=== PATIENT | female | born 1995 | race Caucasian/White ===

== ENCOUNTER 2018-09-09 12:15 | Inpatient (IN) | payer BC ==
[~2018-09-09 12:15] MED LIST: methylPREDNISolone 1 GM in Sodium Chloride 0.9% 250 ML IVPB ONE
[2018-09-09] MEDS ORDERED: Sodium Chloride 0.9% 1,000 ML IV ONE (13:03)
[2018-09-09 13:07] LABS: BASO # 0.1 K/uL (0.0-0.2); EOS % 0.3 % (0.0-4.0); LYMPH # 1.6 K/uL (1.0-4.3); LYMPH % 21.6 % (20.0-40.0); MEAN CORPUSCULAR HEMOGLOBIN 14.5 pg (27.0-31.0); MEAN CORPUSCULAR HGB CONC 26.9 g/dL (33.0-37.0); MEAN PLATELET VOLUME 9.1 fL (7.2-11.7); MONO # 0.5 K/uL (0.0-0.8); MONO % 6.7 % (0.0-10.0); NEUT # 5.3 K/uL (1.8-7.0); NEUT % 70.4 % (50.0-75.0); NRBC % 0.4 % (0.0-2.0); RBC 3.32 Mil/uL (3.80-5.20); RED CELL DISTRIBUTION WIDTH 20.5 % (11.5-14.5); WHITE BLOOD COUNT 7.5 K/uL (4.8-10.8)
[2018-09-09 13:16] LABS: INR 1.2; PROTHROMBIN TIME 12.8 SECONDS (9.7-12.2)
[2018-09-09 13:17] LABS: ALB/GLOB RATIO 1.2 (1.0-2.1); ALBUMIN 4.3 g/dL (3.5-5.0); ALT/SGPT 15 U/L (9-52); AST/SGOT 12 U/L (14-36); BLOOD UREA NITROGEN 3 mg/dL (7-17); GFR NON-AFRICAN AMERICAN > 60; HEMOGLOBIN 4.8 g/dL (11.0-16.0)
[2018-09-09] MEDS ORDERED: Sodium Chloride 0.9% 1,000 ML ONE (13:17)
--- NOTE | 2018-09-09 13:25 | RAD ---
Date of service: 09/09/2018 HISTORY: SOB COMPARISON: No prior. TECHNIQUE: Chest PA and lateral FINDINGS: LUNGS: No active pulmonary disease. PLEURA: No significant pleural effusion identified. No pneumothorax apparent. CARDIOVASCULAR: No aortic atherosclerotic calcification present OSSEOUS STRUCTURES: No significant abnormalities. VISUALIZED UPPER ABDOMEN: Normal. OTHER FINDINGS: None. IMPRESSION: No active disease.
--- NOTE | 2018-09-09 13:35 | C.PDOC ---
History Of Present Illness 23 y/o female presents to the ER complaining of dizziness.Patient states that she was referred to the ER by her her PMD for anemia. Her PMD referred her for bloodwork, admission, and blood transfusions. Patient reports that she has receive blood transfusions for anemia in the past.Denies having fever, chills, CP, SOB, nausea, and vomiting. Time Seen by Provider: 09/09/18 12:34 Chief Complaint (Nursing): Abnormal Labs History Per: Patient History/Exam Limitations: no limitations Onset/Duration Of Symptoms: Days Current Symptoms Are (Timing): Still Present Severity: Moderate Pain Scale Rating Of: 3 Recent travel outside of the [place]: No Additional History Per: Patient, Family Past Medical History Reviewed: Historical Data, Nursing Documentation, Vital Signs Vital Signs: Last Vital Signs Temp 99.4 F 09/09/18 12:23 Pulse 129 H 09/09/18 12:23 Resp 15 09/09/18 12:23 BP 116/72 09/09/18 12:23 Pulse Ox 100 09/09/18 12:23 - Medical History PMH: No Chronic Diseases Surgical History: Appendectomy Family History: States: No Known Family Hx - Social History Hx Alcohol Use: No Hx Substance Use: No - Immunization History Hx Tetanus Toxoid Vaccination: No Hx Influenza Vaccination: No Hx Pneumococcal Vaccination: No Review Of Systems Except As Marked, All Systems Reviewed And Found Negative. Constitutional: Negative for: Fever, Chills Cardiovascular: Negative for: Chest Pain Respiratory: Negative for: Shortness of Breath Gastrointestinal: Negative for: Nausea, Vomiting Neurological: Positive for: Dizziness Physical Exam - Physical Exam Appears: Non-toxic, No Acute Distress Skin: Warm, Dry, Pale Head: Atraumatic, Normacephalic Eye(s): bilateral: Normal Inspection Nose: Normal Oral Mucosa: Moist Lips: Normal Appearing Neck: Supple Chest: Symmetrical Cardiovascular: Rhythm Irregular (tachycardiac) Respiratory: Normal Breath Sounds, No Rales, No Rhonchi, No Wheezing Gastrointestinal/Abdominal: Normal Exam, Soft, No Tenderness, No Guarding, No Rebound Extremity: Normal ROM, Other (no edema) Neurological/Psych: Oriented x3, Normal Speech Gait: Steady ED Course And Treatment - Laboratory Results Result Diagrams: 09/09/18 13:01 09/09/18 13:01 Lab Interpretation: Abnormal Urine POC: Negative O2 Sat by Pulse Oximetry: 100 (RA) Pulse Ox Interpretation: Normal - Radiology CXR: Interpreted by Me - CT Scan/US No standard instances Other Rad Studies (CT/US): Read By Radiologist, Radiology Report Reviewed CT/US Interpretation: FINDINGS: Mild streak artifact limits evaluation of the skull base. HEMORRHAGE: No intracranial hemorrhage. BRAIN: No mass effect or edema. The silvestre-white matter differentiation appears intact. Please note that MRI with diffusion imaging is more sensitive in the detection of acute ischemic event. VENTRICLES: No hydrocephalus. CALVARIUM: Unremarkable. PARANASAL SINUSES: Unremarkable as visualized. No significant inflammatory changes. MASTOID AIR CELLS: Unremarkable as visualized. No inflammatory changes. OTHER FINDINGS: None. IMPRESSION: No acute intracranial pathology identified. Progress Note: Treated with IVF NSS. Consent for blood obtained Reassessment Condition: Unchanged - Physician Consult Information Physician Contacted: Chana Newell Outcome Of Conversation: admit Medical Decision Making Medical Decision Making: Plan: --Labs --UA --CT-Head --US-Abd. --US-Pelv. Updates: Case discussed with hospitalist, . Patient will be admitted under the service of . Disposition Discussed With Dr.: Chana Newell Doctor Will See Patient In The: Hospital - Disposition Disposition: HOME/ ROUTINE Disposition Time: 17:30 Condition: STABLE - POA Present On Arrival: None - Clinical Impression Clinical Impression: Anemia, Thrombocytopenia - PA / TOLL OPERATOR / Resident Statement MD/DO has reviewed & agrees with the documentation as recorded. - Scribe Statement The provider has reviewed the documentation as recorded by the Anabell Gaytan Provider Attestation All medical record entries made by the Anabell were at my direction and personally dictated by me. I have reviewed the chart and agree that the record accurately reflects my personal performance of the history, physical exam, medical decision making, and the department course for this patient. I have also personally directed, reviewed, and agree with the discharge instructions and disposition.
--- NOTE | 2018-09-09 13:35 | C.PDOC ---
Time Seen by Provider: 09/09/18 12:34 Chief Complaint (Nursing): Abnormal Labs Past Medical History Vital Signs: Last Vital Signs Temp 99.4 F 09/09/18 12:23 Pulse 129 H 09/09/18 12:23 Resp 15 09/09/18 12:23 BP 116/72 09/09/18 12:23 Pulse Ox 100 09/09/18 12:23 Surgical History: Appendectomy - Social History Hx Alcohol Use: No Hx Substance Use: No - Immunization History Hx Tetanus Toxoid Vaccination: No Hx Influenza Vaccination: No Hx Pneumococcal Vaccination: No ED Course And Treatment - Laboratory Results Result Diagrams: 09/09/18 13:01 09/09/18 13:01 O2 Sat by Pulse Oximetry: 100 Disposition - Disposition
[2018-09-09 14:23] LABS: FOLATE 9.6 ng/mL
--- NOTE | 2018-09-09 14:28 | US ---
Date of service: 09/09/2018 HISTORY: Anemia COMPARISON: None available. TECHNIQUE: Transabdominal pelvic ultrasound was performed. FINDINGS: UTERUS: Measures 6.5 x 3.7 x 4.8 cm. Anteverted, normal in size and appearance. No fibroid or other mass lesion seen. ENDOMETRIUM: Measures 9.0 mm in diameter. The central endometrial echo complex is normal in appearance. CERVIX: No cervical abnormality identified. RIGHT OVARY: Measures 3.7 x 1.8 x 3.1 cm. No solid mass. Normal flow. LEFT OVARY: Measures 0.0 x 3.1 x 4.3 cm. No solid mass. Normal flow. FREE FLUID: There is small amount of free fluid in the cul de sac, likely physiologic. OTHER FINDINGS: None. IMPRESSION: Unremarkable pelvic ultrasound.
--- NOTE | 2018-09-09 14:30 | US ---
Date of service: 09/09/2018 HISTORY: Anemia COMPARISON: None. TECHNIQUE: Grayscale imaging was performed. FINDINGS: LIVER: Measures 14.1 cm. There is diffuse increased echogenicity of the liver parenchyma. No mass. No intrahepatic bile duct dilatation. GALLBLADDER: There are no gallstones, wall thickening or pericholecystic fluid. The sonographic Hensley's sign is negative. COMMON BILE DUCT: Measures 2.6 mm. No stones. No dilatation. PANCREAS: Unremarkable as visualized. No mass. No ductal dilatation. RIGHT KIDNEY: Measures 11.8cm. Normal echogenicity. No calculus, mass, or hydronephrosis. LEFT KIDNEY: Measures 11.6cm. Normal echogenicity. No calculus, mass, or hydronephrosis. SPLEEN: The spleen is enlarged and measures 13.2 cm. Normal echotexture. AORTA: No aneurysmal dilatation. IVC: Unremarkable. OTHER FINDINGS: None. IMPRESSION: Fatty liver. Mild splenomegaly. No cholelithiasis or biliary dilatation.
[2018-09-09 15:08] LABS: IRON 18 ug/dL (37-170)
--- NOTE | 2018-09-09 15:11 | CT ---
Date of service: 09/09/2018 PROCEDURE: CT HEAD WITHOUT CONTRAST. HISTORY: R/O Bleed COMPARISON: None available. TECHNIQUE: Axial computed tomography images were obtained through the head/brain without intravenous contrast. Radiation dose: Total exam DLP = 1076.11 mGy-cm. This CT exam was performed using one or more of the following dose reduction techniques: Automated exposure control, adjustment of the mA and/or kV according to patient size, and/or use of iterative reconstruction technique. FINDINGS: Mild streak artifact limits evaluation of the skull base. HEMORRHAGE: No intracranial hemorrhage. BRAIN: No mass effect or edema. The silvestre-white matter differentiation appears intact. Please note that MRI with diffusion imaging is more sensitive in the detection of acute ischemic event. VENTRICLES: No hydrocephalus. CALVARIUM: Unremarkable. PARANASAL SINUSES: Unremarkable as visualized. No significant inflammatory changes. MASTOID AIR CELLS: Unremarkable as visualized. No inflammatory changes. OTHER FINDINGS: None. IMPRESSION: No acute intracranial pathology identified.
[2018-09-09 15:17] LABS: % IRON SATURATION 4 (20-55); TOTAL IRON BINDING CAPACITY 431 ug/dL (250-450)
[2018-09-09] MEDS ORDERED: MethylPREDNISolone 1 gm Vial IV ONE ×2 (15:26→15:27)
[2018-09-09 15:34] LABS: HEPATITIS B SURFACE AG Negative (NEGATIVE)
[2018-09-09 15:40] LABS: HEPATITIS A IGM NEGATIVE (NEGATIVE); HEPATITIS B CORE AB NEGATIVE (NEGATIVE)
[2018-09-09 15:40] LABS: HCG,QUALITATIVE URINE NEGATIVE (NEGATIVE)
[2018-09-09 15:42] LABS: PLATELET COUNT MANUAL 10 K/uL (130-400)
[2018-09-09 15:43] LABS: SQUAMOUS EPITHIAL 1 /hpf (0-5); URINE BACTERIA FEW (<OCC); URINE BILIRUBIN NEGATIVE (NEGATIVE); URINE BLOOD NEGATIVE (NEGATIVE); URINE CLARITY Clear (Clear); URINE COLOR Straw (YELLOW); URINE GLUCOSE (UA) NORMAL (Normal); URINE LEUKOCYTE ESTERASE NEG Leu/uL (Negative); URINE PROTEIN NEGATIVE (NEGATIVE); URINE UROBILINOGEN NORMAL mg/dL (0.2-1.0)
--- NOTE | 2018-09-09 15:58 | CP.PCM.HP ---
<Milagro Tobar - Last Filed: 09/09/18 18:13> History of Present Illness - History of Present Illness History of Present Illness: 23 y/o female with PMHx of blood dyscrasias since 2014 presents to the emergency room upon referral from Dr. Garcia, heme-onc. She got bloodwork completed yesterday, 09/08, and was seen by him today, 09/09. He told her to go to the emergency room due to critical lab values (Hb 4.8 and plt 11). Of note, patient has been feeling weak and dizzy for the past 3 weeks. Her LMP was Oct 6. The cycle was longer but not any heavier. Patient has been a regular patient of [facility] in [place] since she first had such an episode of weakness/diziness in 2014 and also in [place] in March 2018. During her first episode, patient was on steroids for a year, and in March she was on it for a week. Patient currently not treated with steroids, but been recently taking iron supplements from her OBGYN, Dr. Castro. She recently moved from [facility] since this past spring and is a p atient of Dr. Castro and Dr. Garcia, the latter who she just saw for the first time. Patient denies TALLEY, abdominal pain, chest pain, shortness of breath, rash, easy bruising, and weight changes. Recent travel was just in [place] in Jul, however, denies being in a Malaria exposed environment. ROS: as per HPI PMHx: blood dyscrasias since 2014, no other known PMHx PSHx: appendectomy 6 y/o, BM bx 2014 and blood smear 2014 which showed anisocytosis, microcytes, ovalocytes, moderate thrombocytopenia, and few giant platelets. Negative for malignancy. FHx: Denies FHx of CA, blood disorders, UT or CVA SocHx: Denies tobacco, EtOH, illicit drugs. 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 Lives with in [place]. They both moved from [place] last spring. Currently no children. Meds: Iron supplement by Dr. Castro OBKWASI, no supplements or OTC Allergies: NKDA Present on Admission - Present on Admission Any Indicators Present on Admission: Yes Review of Systems - Review of Systems All systems: reviewed and no additional remarkable complaints except Past Patient History - Infectious Disease Hx of Infectious Diseases: None - Past Social History Smoking Status: Never Smoked - PSYCHIATRIC Hx Substance Use: No - SURGICAL HISTORY Hx Appendectomy: Yes - ANESTHESIA Hx Anesthesia: Yes Hx Anesthesia Reactions: No Meds Allergies/Adverse Reactions: Allergies Allergy/AdvReac Type Severity Reaction Status Date / Time No Known Allergies Allergy Verified 09/09/18 12:23 Physical Exam - Constitutional Appears: Well, Non-toxic - Head Exam Head Exam: ATRAUMATIC - Eye Exam Eye Exam: EOMI, Normal appearance Pupil Exam: NORMAL ACCOMODATION, PERRL Additional comments: pale conjunctiva - ENT Exam ENT Exam: Mucous Membranes Moist - Neck Exam Neck exam: Positive for: Normal Inspection - Respiratory Exam Respiratory Exam: Clear to Auscultation Bilateral, NORMAL BREATHING PATTERN - Cardiovascular Exam Cardiovascular Exam: Tachycardia, REGULAR RHYTHM - GI/Abdominal Exam GI & Abdominal Exam: Normal Bowel Sounds, Soft. absent: Organomegaly - Rectal Exam Rectal Exam: NORMAL INSPECTION - Extremities Exam Extremities exam: Positive for: normal inspection - Psychiatric Exam Psychiatric exam: Normal Affect, Normal Mood - Skin Skin Exam: Dry, Intact, Normal Color Results - Vital Signs Recent Vital Signs: Last Vital Signs Temp 98.3 F 09/09/18 15:40 Pulse 116 H 09/09/18 15:40 Resp 14 09/09/18 15:40 BP 103/65 09/09/18 15:40 Pulse Ox 100 09/09/18 15:40 - Labs Result Diagrams: 09/09/18 13:01 09/09/18 13:01 Labs: Laboratory Results - last 24 hr 09/09/18 09/09/18 09/09/18 13:01 13:01 13:01 WBC 7.5 RBC 3.32 L Hgb 4.8 L* Hct 17.9 L MCV 54.0 L MCH 14.5 L MCHC 26.9 L RDW 20.5 H Plt Count 11 L* Manual Plt Count MPV 9.1 Neut % (Auto) 70.4 Lymph % (Auto) 21.6 [place] % (Auto) 6.7 Eos % (Auto) 0.3 Baso % (Auto) 1.0 Neut # (Auto) 5.3 Lymph # (Auto) 1.6 [place] # (Auto) 0.5 Eos # (Auto) 0.0 Baso # (Auto) 0.1 Differential Comment Retic Count PT 12.8 H INR 1.2 APTT 34 Sodium 140 Potassium 3.7 Chloride 103 Carbon Dioxide 25 Anion Gap 16 BUN 3 L Creatinine 0.4 L Est GFR ( Amer) > 60 Est GFR (Non-Af Amer) > 60 Random Glucose 107 H Calcium 9.0 Iron TIBC % Saturation Ferritin Total Bilirubin 1.1 AST 12 L ALT 15 Alkaline Phosphatase 69 Total Protein 8.0 Albumin 4.3 Globulin 3.7 Albumin/Globulin Ratio 1.2 Vitamin B12 341 Folate 9.6 Urine Color Urine Clarity Urine pH Ur Specific [place] Urine Protein Urine Glucose (UA) Urine Ketones Urine Blood Urine Nitrate Urine Bilirubin Urine Urobilinogen Ur Leukocyte Esterase Urine WBC (Auto) Ur Squamous Epith Cells Urine Bacteria Urine HCG, Qual Hepatitis A IgM Ab Hep Bs Antigen Hep B Core IgM Ab HIV 1&2 Antibody Screen Blood Type Antibody Screen 09/09/18 09/09/18 09/09/18 13:01 14:32 14:45 WBC RBC Hgb Hct MCV MCH MCHC RDW Plt Count Manual Plt Count 10 L* MPV Neut % (Auto) Lymph % (Auto) [place] % (Auto) Eos % (Auto) Baso % (Auto) Neut # (Auto) Lymph # (Auto) [place] # (Auto) Eos # (Auto) Baso # (Auto) Differential Comment Retic Count 5.0 H PT INR APTT Sodium Potassium Chloride Carbon Dioxide Anion Gap BUN Creatinine Est GFR ( Amer) Est GFR (Non-Af Amer) Random Glucose Calcium Iron TIBC % Saturation Ferritin Total Bilirubin AST ALT Alkaline Phosphatase Total Protein Albumin Globulin Albumin/Globulin Ratio Vitamin B12 Folate Urine Color Urine Clarity Urine pH Ur Specific [place] Urine Protein Urine Glucose (UA) Urine Ketones Urine Blood Urine Nitrate Urine Bilirubin Urine Urobilinogen Ur Leukocyte Esterase Urine WBC (Auto) Ur Squamous Epith Cells Urine Bacteria Urine HCG, Qual Hepatitis A IgM Ab Hep Bs Antigen Hep B Core IgM Ab HIV 1&2 Antibody Screen Blood Type O POSITIVE Antibody Screen Negative 09/09/18 09/09/18 09/09/18 14:45 14:45 14:45 WBC RBC Hgb Hct MCV MCH MCHC RDW Plt Count Manual Plt Count MPV Neut % (Auto) Lymph % (Auto) [place] % (Auto) Eos % (Auto) Baso % (Auto) Neut # (Auto) Lymph # (Auto) [place] # (Auto) Eos # (Auto) Baso # (Auto) Differential Comment Retic Count PT INR APTT Sodium Potassium Chloride Carbon Dioxide Anion Gap BUN Creatinine Est GFR ( Amer) Est GFR (Non-Af Amer) Random Glucose Calcium Iron 18 L TIBC 431 % Saturation 4 L Ferritin Total Bilirubin AST ALT Alkaline Phosphatase Total Protein Albumin Globulin Albumin/Globulin Ratio Vitamin B12 Folate Urine Color Urine Clarity Urine pH Ur Specific [place] Urine Protein Urine Glucose (UA) Urine Ketones Urine Blood Urine Nitrate Urine Bilirubin Urine Urobilinogen Ur Leukocyte Esterase Urine WBC (Auto) Ur Squamous Epith Cells Urine Bacteria Urine HCG, Qual Hepatitis A IgM Ab Negative Hep Bs Antigen Negative Hep B Core IgM Ab Negative HIV 1&2 Antibody Screen Negative Blood Type Antibody Screen 09/09/18 09/09/18 14:45 15:24 WBC RBC Hgb Hct MCV MCH MCHC RDW Plt Count Manual Plt Count MPV Neut % (Auto) Lymph % (Auto) [place] % (Auto) Eos % (Auto) Baso % (Auto) Neut # (Auto) Lymph # (Auto) [place] # (Auto) Eos # (Auto) Baso # (Auto) Differential Comment Retic Count PT INR APTT Sodium Potassium Chloride Carbon Dioxide Anion Gap BUN Creatinine Est GFR ( Amer) Est GFR (Non-Af Amer) Random Glucose Calcium Iron TIBC % Saturation Ferritin 3.8 Total Bilirubin AST ALT Alkaline Phosphatase Total Protein Albumin Globulin Albumin/Globulin Ratio Vitamin B12 Folate Urine Color Straw Urine Clarity Clear Urine pH 5.0 Ur Specific [place] 1.004 Urine Protein Negative Urine Glucose (UA) Normal Urine Ketones Negative Urine Blood Negative Urine Nitrate Negative Urine Bilirubin Negative Urine Urobilinogen Normal Ur Leukocyte Esterase Neg Urine WBC (Auto) 1 Ur Squamous Epith Cells 1 Urine Bacteria Few H Urine HCG, Qual Negative Hepatitis A IgM Ab Hep Bs Antigen Hep B Core IgM Ab HIV 1&2 Antibody Screen Blood Type Antibody Screen Assessment & Plan - Assessment and Plan (Free Text) Assessment: 23 y/o female with PMHx of blood dyscrasias since 2014 presents to the ED from outpatient clinic Dr. Garcia (heme onc) due to critical lab values - severe thrombocytopenia and anemia. Dr. Garcia on board during this hospitalization - will appreciate recs. 1) severe symptomatic anemia -2/2 iron deficiency anemia; patient with normal folate and B12 even despite vegetarian diet, MCV 54 (microcytic) -type and cross -2 units PRBC, 1 unit platelets and consent -repeat CBC after transfusions -IV ferricelet daily -iron studies, occult blood, ferritin, reticulocyte -neuro q4 2) severe thrombocytopenia -STAT CT head - patient's low platelets (11) makes her at risk for spontaneous bleed. CXR, Abd US, and pelvic US without acute bleeding. -thorough skin inspection without petechiae, continue to inspect -fall precautions -1 unit platelets today -solumedrol 1g IV today and 1g tomorrow per heme onc recs -ID workup: HIV, hepatitis, mycoplasma -other workup: [id number] deficiency, Lupus -LDH -blood smear -flow cytometry -drug screen -*Hold DVT ppx! case discussed with Dr. Newell. Milagro Tobar, DO PGY-1 <Chana Newell V - Last Filed: 09/09/18 20:28> Results - Vital Signs Recent Vital Signs: Last Vital Signs Temp 98.4 F 09/09/18 18:23 Pulse 108 H 09/09/18 18:23 Resp 18 09/09/18 18:23 BP 97/59 L 09/09/18 18:23 Pulse Ox 100 09/09/18 18:23 - Labs Result Diagrams: 09/09/18 13:01 09/09/18 13:01 Labs: Laboratory Results - last 24 hr 09/09/18 09/09/18 09/09/18 13:01 13:01 13:01 WBC 7.5 RBC 3.32 L Hgb 4.8 L* Hct 17.9 L MCV 54.0 L MCH 14.5 L MCHC 26.9 L RDW 20.5 H Plt Count 11 L* Manual Plt Count MPV 9.1 Neut % (Auto) 70.4 Lymph % (Auto) 21.6 [place] % (Auto) 6.7 Eos % (Auto) 0.3 Baso % (Auto) 1.0 Neut # (Auto) 5.3 Lymph # (Auto) 1.6 [place] # (Auto) 0.5 Eos # (Auto) 0.0 Baso # (Auto) 0.1 Differential Comment Retic Count PT 12.8 H INR 1.2 APTT 34 Sodium 140 Potassium 3.7 Chloride 103 Carbon Dioxide 25 Anion Gap 16 BUN 3 L Creatinine 0.4 L Est GFR ( Amer) > 60 Est GFR (Non-Af Amer) > 60 Random Glucose 107 H Calcium 9.0 Iron TIBC % Saturation Ferritin Total Bilirubin 1.1 AST 12 L ALT 15 Alkaline Phosphatase 69 Total Protein 8.0 Albumin 4.3 Globulin 3.7 Albumin/Globulin Ratio 1.2 Vitamin B12 341 Folate 9.6 Urine Color Urine Clarity Urine pH Ur Specific [place] Urine Protein Urine Glucose (UA) Urine Ketones Urine Blood Urine Nitrate Urine Bilirubin Urine Urobilinogen Ur Leukocyte Esterase Urine WBC (Auto) Ur Squamous Epith Cells Urine Bacteria Urine HCG, Qual Urine Opiates Screen Urine Methadone Screen Ur Barbiturates Screen Ur Phencyclidine Scrn Ur Amphetamines Screen U Benzodiazepines Scrn U Oth Cocaine Metabols U Cannabinoids Screen Hepatitis A IgM Ab Hep Bs Antigen Hep B Core IgM Ab Hepatitis C Antibody HIV 1&2 Antibody Screen Blood Parasites Smear Blood Type Antibody Screen 09/09/18 09/09/18 09/09/18 13:01 14:32 14:45 WBC RBC Hgb Hct MCV MCH MCHC RDW Plt Count Manual Plt Count 10 L* MPV Neut % (Auto) Lymph % (Auto) [place] % (Auto) Eos % (Auto) Baso % (Auto) Neut # (Auto) Lymph # (Auto) [place] # (Auto) Eos # (Auto) Baso # (Auto) Differential Comment Retic Count 5.0 H PT INR APTT Sodium Potassium Chloride Carbon Dioxide Anion Gap BUN Creatinine Est GFR ( Amer) Est GFR (Non-Af Amer) Random Glucose Calcium Iron TIBC % Saturation Ferritin Total Bilirubin AST ALT Alkaline Phosphatase Total Protein Albumin Globulin Albumin/Globulin Ratio Vitamin B12 Folate Urine Color Urine Clarity Urine pH Ur Specific [place] Urine Protein Urine Glucose (UA) Urine Ketones Urine Blood Urine Nitrate Urine Bilirubin Urine Urobilinogen Ur Leukocyte Esterase Urine WBC (Auto) Ur Squamous Epith Cells Urine Bacteria Urine HCG, Qual Urine Opiates Screen Urine Methadone Screen Ur Barbiturates Screen Ur Phencyclidine Scrn Ur Amphetamines Screen U Benzodiazepines Scrn U Oth Cocaine Metabols U Cannabinoids Screen Hepatitis A IgM Ab Hep Bs Antigen Hep B Core IgM Ab Hepatitis C Antibody HIV 1&2 Antibody Screen Blood Parasites Smear Negative Blood Type O POSITIVE Antibody Screen Negative 09/09/18 09/09/18 09/09/18 14:45 14:45 14:45 WBC RBC Hgb Hct MCV MCH MCHC RDW Plt Count Manual Plt Count MPV Neut % (Auto) Lymph % (Auto) [place] % (Auto) Eos % (Auto) Baso % (Auto) Neut # (Auto) Lymph # (Auto) [place] # (Auto) Eos # (Auto) Baso # (Auto) Differential Comment Retic Count PT INR APTT Sodium Potassium Chloride Carbon Dioxide Anion Gap BUN Creatinine Est GFR ( Amer) Est GFR (Non-Af Amer) Random Glucose Calcium Iron 18 L TIBC 431 % Saturation 4 L Ferritin Total Bilirubin AST ALT Alkaline Phosphatase Total Protein Albumin Globulin Albumin/Globulin Ratio Vitamin B12 Folate Urine Color Urine Clarity Urine pH Ur Specific [place] Urine Protein Urine Glucose (UA) Urine Ketones Urine Blood Urine Nitrate Urine Bilirubin Urine Urobilinogen Ur Leukocyte Esterase Urine WBC (Auto) Ur Squamous Epith Cells Urine Bacteria Urine HCG, Qual Urine Opiates Screen Urine Methadone Screen Ur Barbiturates Screen Ur Phencyclidine Scrn Ur Amphetamines Screen U Benzodiazepines Scrn U Oth Cocaine Metabols U Cannabinoids Screen Hepatitis A IgM Ab Negative Hep Bs Antigen Negative Hep B Core IgM Ab Negative Hepatitis C Antibody Negative HIV 1&2 Antibody Screen Negative Blood Parasites Smear Blood Type Antibody Screen 09/09/18 09/09/18 09/09/18 14:45 15:24 18:16 WBC RBC Hgb Hct MCV MCH MCHC RDW Plt Count Manual Plt Count MPV Neut % (Auto) Lymph % (Auto) [place] % (Auto) Eos % (Auto) Baso % (Auto) Neut # (Auto) Lymph # (Auto) [place] # (Auto) Eos # (Auto) Baso # (Auto) Differential Comment Retic Count PT INR APTT Sodium Potassium Chloride Carbon Dioxide Anion Gap BUN Creatinine Est GFR ( Amer) Est GFR (Non-Af Amer) Random Glucose Calcium Iron TIBC % Saturation Ferritin 3.8 Total Bilirubin AST ALT Alkaline Phosphatase Total Protein Albumin Globulin Albumin/Globulin Ratio Vitamin B12 Folate Urine Color Straw Urine Clarity Clear Urine pH 5.0 Ur Specific [place] 1.004 Urine Protein Negative Urine Glucose (UA) Normal Urine Ketones Negative Urine Blood Negative Urine Nitrate Negative Urine Bilirubin Negative Urine Urobilinogen Normal Ur Leukocyte Esterase Neg Urine WBC (Auto) 1 Ur Squamous Epith Cells 1 Urine Bacteria Few H Urine HCG, Qual Negative Urine Opiates Screen Negative Urine Methadone Screen Negative Ur Barbiturates Screen Negative Ur Phencyclidine Scrn Negative Ur Amphetamines Screen Negative U Benzodiazepines Scrn Negative U Oth Cocaine Metabols Negative U Cannabinoids Screen Negative Hepatitis A IgM Ab Hep Bs Antigen Hep B Core IgM Ab Hepatitis C Antibody HIV 1&2 Antibody Screen Blood Parasites Smear Blood Type Antibody Screen Attending/Attestation - Attestation I have personally seen and examined this patient.: Yes I have fully participated in the care of the patient.: Yes I have reviewed all pertinent clinical information: Yes Notes (Text): 23 year old Female comes in per recommendation for heme-oncology for critical lab values in regards to severe anemia and thrombocytopenia. Patient noted she has felt tired and weak for the past 3 weeks. no falls. Patient reports she has problems in the past in regards to blood work; has been on steroids twice and has had a bone marrow before. On exam, there is no petechiae, no neurologic deficits, reports she is urinating well. I spoke with Dr. Garcia on the phone, recommended for Solumedrol 1 gram IV now, and one dose tomorrow; recommended for platelet transfusion 1 unit, IV iron, and PRBC, spep, flow cytometry. He had sent list of tests to be ordered which were completed: hiv negative, hepatitis negative, and pelvic and abdominal US noting for splenomgaly. Patient had complained of dizziness, CT head completed showing no bleed. I order peripheral blood smear, and saw under the microscope hypochromic blood cells no schistocytes seen. Patient to observed on telemetry. Assessment/Plan 1) severe symptomatic anemia Assessment/Plan * Iron deficiency anemia; patient with normal folate and B12 even despite vegetarian diet, MCV 54 (microcytic) * Type and cross, 2 units PRBC, 1 unit platelets and consent * Start IV iron * iron studies, occult blood, ferritin, reticulocyte prior to blood transfusions * hemoglobinpathy eval * ck/indirect ck 2) severe thrombocytopenia Assessment/Plan * STAT CT head: no acute bleed * No petechiae, no bleeding, no epistaxsis * peripheral blood smear-->hypochromic; no schistocytes observed * fall precautions * Discussed with heme-onc * solumedrol 1g IV today and 1g tomorrow per heme onc recs * HIV, hepatitis, mycoplasma * platelet transfusion * other workup: [id number] deficiency, Lupus, LDH, flow cytometry, spep * Patient is [place] [facility], check malaria (no fever, no chills) * Drug screen low suspicion 3) Prophylactic measure * No chemical anticoagulation secondary to thrombocytopenia * no GI ppx secondary to thrombocytopenia * Fall precautions * Neurochecks * Pt/OT
[2018-09-09] MEDS ORDERED: DiphenhydrAMINE 12.5 mg/5 ml LIQ UD (5 ml) PO STA (15:59)
[2018-09-09] MEDS ORDERED: methylPREDNISolone 1 GM in Sodium Chloride 0.9% 250 ML IV ONE (16:00)
[2018-09-09 16:14] LABS: HEPATITIS C ANTIBODY NEGATIVE (NEGATIVE)
[2018-09-09 18:21] LABS: INTRACELLULAR PARASITE NEGATIVE (NEGATIVE)
[2018-09-09 18:44] LABS: BENZODIAZEPINES, UR NEGATIVE (NEGATIVE); OPIATES, UR NEGATIVE (NEGATIVE); PHENCYCLIDINE, UR NEGATIVE (NEGATIVE)
[2018-09-09 19:11] LABS: BARBITURATES, UR NEGATIVE (NEGATIVE)
[2018-09-10 07:22] LABS: BASO % 0.2 % (0.0-2.0); HEMOGLOBIN 7.9 g/dL (11.0-16.0); LYMPH # 1.1 K/uL (1.0-4.3); LYMPH % 8.5 % (20.0-40.0); MEAN CELL VOLUME 64.4 fL (81.0-99.0); MEAN CORPUSCULAR HEMOGLOBIN 19.3 pg (27.0-31.0); MEAN PLATELET VOLUME 9.2 fL (7.2-11.7); MONO # 0.1 K/uL (0.0-0.8); MONO % 0.8 % (0.0-10.0); NEUT # 11.3 K/uL (1.8-7.0); NEUT % 90.5 % (50.0-75.0); NRBC % 0.2 % (0.0-2.0); RBC 4.11 Mil/uL (3.80-5.20); RED CELL DISTRIBUTION WIDTH 33.7 % (11.5-14.5); WHITE BLOOD COUNT 12.5 K/uL (4.8-10.8)
[2018-09-10 07:28] LABS: ALB/GLOB RATIO 1.2 (1.0-2.1); ALBUMIN 4.5 g/dL (3.5-5.0); ALT/SGPT 17 U/L (9-52); AST/SGOT 13 U/L (14-36); BLOOD UREA NITROGEN 5 mg/dL (7-17); CALCIUM 9.8 mg/dl (8.6-10.4); GFR NON-AFRICAN AMERICAN > 60; PLATELET COUNT 9 K/uL (130-400)
[2018-09-10 07:36] LABS: INR 1.1; PROTHROMBIN TIME 11.5 SECONDS (9.7-12.2)
[2018-09-10 07:51] LABS: FIBRINOGEN 305 mg/dL (200-400)
[2018-09-10 08:00] LABS: FDP INTERPRETATION NEGATIVE (NEGATIVE); FDP QUANTITY <10 ug/mL (<10)
[2018-09-10 08:05] LABS: % IRON SATURATION 3 (20-55); TOTAL IRON BINDING CAPACITY 520 ug/dL (250-450)
[2018-09-10 08:57] LABS: ALBUMIN (PEP) 3.4 g/dL (3.8-4.8); ALPHA-1-GLOBULIN (PEP) 0.3 g/dL (0.2-0.3)
[2018-09-10 09:04] LABS: LYMPHOCYTE 10 % (20-40); MONOCYTE 1 % (0-10); NEUTROPHIL 89 % (50-75); PLATELET ESTIMATE MARKEDLY DECREASED (NORMAL); TOTAL CELLS COUNTED 100
[2018-09-10 09:05] LABS: ANISOCYTOSIS MODERATE; HYPOCHROMIC MODERATE; MICROCYTOSIS MODERATE; OVALOCYTES MODERATE; POIKILOCYTOSIS MODERATE; TEARDROP CELLS SLIGHT
[2018-09-10 09:06] LABS: POLYCHROMIC SLIGHT; TARGET CELLS SLIGHT
[2018-09-10] MEDS ORDERED: methylPREDNISolone 1 GM in Sodium Chloride 0.9% 250 ML IVPB ONE (10:00)
[2018-09-10] MEDS ORDERED: MethylPREDNISolone 1 gm Vial IV ONE (10:00)
[2018-09-10] MEDS ORDERED: Ferric Sodium Gluconat Complex 62.5 mg/5 ml Vial IVPB SCH (10:00)
[2018-09-10] MEDS: Ferric Sodium Gluconat Complex 125 MG in Sodium Chloride 0.9% 100 ML IVPB SCH (10:54)
--- NOTE | 2018-09-10 15:02 | CP.PCM.PN ---
<Milagro Tobar - Last Filed: 09/10/18 17:09> Subjective - Date & Time of Evaluation Date of Evaluation: 09/10/18 Time of Evaluation: 14:57 - Subjective Subjective: Medicine - Dr. Newell's Service Patient seen and examined this morning. She states she feels the same as yesterday. However was able to go to bathroom unassisted. Objective - Vital Signs/Intake and Output Vital Signs (last 24 hours): Temp Pulse Resp BP Pulse Ox 97.4 F L 93 H 18 107/72 97 09/10/18 09:21 09/10/18 09:21 09/10/18 09:21 09/10/18 09:21 09/10/18 09:21 Intake and Output: 09/10/18 09/10/18 06:59 18:59 Intake Total 1795 Balance 1795 - Medications Medications: Current Medications Ferric Sodium Gluconate Complex 125 mg/ Sodium Chloride 110 mls @ 100 mls/hr IVPB DAILY ANNA Stop: 09/18/18 10:01 Last Admin: 09/10/18 10:54 Dose: 100 mls/hr Pneumococcal Polyvalent Vaccine (Pneumovax 23 Vaccine) 0.5 ml IM .ONCE ONE Stop: 09/11/18 10:01 - Labs Labs: 09/10/18 06:50 09/10/18 06:50 PT 11.5 SECONDS (9.7-12.2) 09/10/18 06:50 INR 1.1 09/10/18 06:50 APTT 34 SECONDS (21-34) 09/10/18 06:50 - Constitutional Appears: Well, Non-toxic - Head Exam Head Exam: ATRAUMATIC, NORMAL INSPECTION - Eye Exam Eye Exam: EOMI, Normal appearance - ENT Exam ENT Exam: Mucous Membranes Moist Additional comments: no oropharyngeal bleeding - Neck Exam Neck Exam: Normal Inspection - Respiratory Exam Respiratory Exam: Clear to Ausculation Bilateral, NORMAL BREATHING PATTERN - Cardiovascular Exam Cardiovascular Exam: REGULAR RHYTHM - GI/Abdominal Exam GI & Abdominal Exam: Soft, Normal Bowel Sounds. absent: Organomegaly - Extremities Exam Extremities Exam: Normal Inspection - Neurological Exam Neurological Exam: Alert, Awake, Oriented x3 - Psychiatric Exam Psychiatric exam: Normal Affect, Normal Mood - Skin Additional comments: no petechiae seen upon full skin exam Assessment and Plan - Assessment and Plan (Free Text) Assessment: 23 y/o female with PMHx of blood dyscrasias since 2014 presents to the ED from outpatient clinic Dr. Garcia (heme onc) due to critical lab values yesterday, 09/09, - severe thrombocytopenia and anemia. Dr. Garcia on board during this hospitalization - will appreciate recs. 1) severe symptomatic anemia -2/2 iron deficiency anemia; patient with normal folate and B12 even despite vegetarian diet, MCV 54 (microcytic). Iron studies consistent with iron deficiency anemia -2 units PRBC, 1 unit platelets and consent completed overnight -repeat CBC after transfusions to be held off per heme onc recs -IV ferricelet daily - given this morning -ck/indirect ck, hemoglobinopathy work up 2) severe thrombocytopenia STAT CT head, CXR, Abd US and pelvic US no evidence of acute bleed. Solumedrol 1g given yesterday and today (09/09 and 09/10 respectively). Drug screen negative. -neuro q4h and thorough skin exam to be monitored due to increased risk of bleeding. -fall precautions to continue -1 unit platelets possible for tomorrow, 09/11, hold off for now per heme onc -ID workup: HIV, hepatitis, mycoplasma, malaria -other workup: [id number] deficiency, Lupus, flow cytometry, SPEP -*Hold DVT ppx! -bone marrow bx and IVIG possible for tomorrow per heme onc depending on platelet count drawn tonight (platelets only per recs). Will wait for Dr. Rubio mcclure's recs tonight after his examination of patient. DVT/GI ppx: none 2/2 thrombocytopenia case discussed with Dr. Newell. Milagro Tobar DO PGY-1 <Chana Newell V - Last Filed: 09/10/18 17:49> Objective - Vital Signs/Intake and Output Vital Signs (last 24 hours): Temp Pulse Resp BP Pulse Ox 98 F 85 20 103/70 84 L 09/10/18 15:50 09/10/18 15:50 09/10/18 15:50 09/10/18 15:50 09/10/18 15:50 Intake and Output: 09/10/18 09/10/18 06:59 18:59 Intake Total 1795 Balance 1795 - Medications Medications: Current Medications Ferric Sodium Gluconate Complex 125 mg/ Sodium Chloride 110 mls @ 100 mls/hr IVPB DAILY ANNA Stop: 09/18/18 10:01 Last Admin: 09/10/18 10:54 Dose: 100 mls/hr Pneumococcal Polyvalent Vaccine (Pneumovax 23 Vaccine) 0.5 ml IM .ONCE ONE Stop: 09/11/18 10:01 - Labs Labs: 09/10/18 06:50 09/10/18 06:50 PT 11.5 SECONDS (9.7-12.2) 09/10/18 06:50 INR 1.1 09/10/18 06:50 APTT 34 SECONDS (21-34) 09/10/18 06:50 Attending/Attestation - Attestation I have personally seen and examined this patient.: Yes I have fully participated in the care of the patient.: Yes I have reviewed all pertinent clinical information, including history, physical exam and plan: Yes Notes (Text): 23 year old Female comes in per recommendation for heme-oncology for critical lab values in regards to severe anemia and thrombocytopenia. Patient seen this morning with her at bedside. Patient reports she is feeling more energy. Patient denies any bleeding episodes, denies headaches, and reports she is urinating well. Patient being seen by physical therapist at bedside. I did speak with patient briefly in regards to possible repeat bone marrow biopsy. Patient is hesitant because she has had it twice in the past two years but I did indicate to her it is up to the discretion to the medical practice administrator. Resident has spoken with Dr. Toledo, recommends to hold platelet transfusion today; will f/u with patient in regards to bone marrow biopsy and possible IVIG later today. Patient's hemoglobin has risen appropriately after 2 units of PRBC and platelets remain low. LDH is normal. Iron studies were taken prior to blood transfusion where are low. patient received Solumedrol 1 gram IV today as well. Assessment/Plan 1) severe symptomatic anemia Assessment/Plan * Hematology (Dr. Toledo) on case-->help appreciated * Iron deficiency anemia; patient with normal folate and B12 even despite vegetarian diet, MCV 54 (microcytic) * Type and cross, 2 units PRBC, 1 unit platelets and consent yesterday * c/w V iron * iron studies: low * Reticulocyte count: high * hemoglobinpathy eval: pending * ck/indirect ck pending 2) severe thrombocytopenia Assessment/Plan * CT head: no acute bleed * No petechiae, no bleeding, no epistaxsis * peripheral blood smear-->hypochromic; no schistocytes observed * Abdominal US shows splenomegaly. * fall precautions * Discussed with heme-onc * solumedrol 1g IV today * HIV: negative hepatitis: negative, mycoplasma * other workup: [id number] deficiency, Lupus, LDH, flow cytometry, spep * Patient is [place] [facility]; blood parasites: negative * Drug screen low suspicion 3) Prophylactic measure * No chemical anticoagulation secondary to thrombocytopenia * no GI ppx secondary to thrombocytopenia * Fall precautions * Neurochecks * Pt/OT
--- NOTE | 2018-09-10 17:00 | CP.PCM.PN ---
Subjective - Date & Time of Evaluation Date of Evaluation: 09/10/18 Time of Evaluation: 20:00 - Subjective Subjective: will dictate the note. solumedrol, platelet support, will also consider IVIG ... Bone marrow aspirate and biopsy procedure explained. patient reluctant and will let us know Objective - Vital Signs/Intake and Output Vital Signs (last 24 hours): Temp Pulse Resp BP Pulse Ox 98 F 85 20 103/70 84 L 09/10/18 15:50 09/10/18 15:50 09/10/18 15:50 09/10/18 15:50 09/10/18 15:50 Intake and Output: 09/10/18 09/10/18 06:59 18:59 Intake Total 1795 Balance 1795 - Medications Medications: Current Medications Ferric Sodium Gluconate Complex 125 mg/ Sodium Chloride 110 mls @ 100 mls/hr IVPB DAILY ANNA Stop: 09/18/18 10:01 Last Admin: 09/10/18 10:54 Dose: 100 mls/hr Pneumococcal Polyvalent Vaccine (Pneumovax 23 Vaccine) 0.5 ml IM .ONCE ONE Stop: 09/11/18 10:01 - Labs Labs: 09/10/18 06:50 09/10/18 06:50 PT 11.5 SECONDS (9.7-12.2) 09/10/18 06:50 INR 1.1 09/10/18 06:50 APTT 34 SECONDS (21-34) 09/10/18 06:50
[2018-09-11 07:03] LABS: BASO % 0.2 % (0.0-2.0); HEMOGLOBIN 8.2 g/dL (11.0-16.0); LYMPH # 1.9 K/uL (1.0-4.3); LYMPH % 16.1 % (20.0-40.0); MEAN CELL VOLUME 63.9 fL (81.0-99.0); MEAN CORPUSCULAR HGB CONC 29.7 g/dL (33.0-37.0); MEAN PLATELET VOLUME 9.2 fL (7.2-11.7); MONO # 0.9 K/uL (0.0-0.8); MONO % 7.1 % (0.0-10.0); NEUT # 9.3 K/uL (1.8-7.0); NEUT % 76.6 % (50.0-75.0); NRBC % 0.2 % (0.0-2.0); RBC 4.35 Mil/uL (3.80-5.20); RED CELL DISTRIBUTION WIDTH 34.4 % (11.5-14.5); WHITE BLOOD COUNT 12.1 K/uL (4.8-10.8)
[2018-09-11 07:04] LABS: INR 1.1; PROTHROMBIN TIME 12.5 SECONDS (9.7-12.2)
[2018-09-11 07:18] LABS: ALB/GLOB RATIO 1.1 (1.0-2.1); ALBUMIN 4.4 g/dL (3.5-5.0); ALT/SGPT 14 U/L (9-52); AST/SGOT 9 U/L (14-36); BLOOD UREA NITROGEN 9 mg/dL (7-17); CALCIUM 9.9 mg/dl (8.6-10.4); GFR NON-AFRICAN AMERICAN > 60
[2018-09-11 09:08] LABS: MCH 19.3 pg (27.0-33.0); MCV 67.5 fL (80.0-100.0)
[2018-09-11] MEDS: Ferric Sodium Gluconat Complex 125 MG in Sodium Chloride 0.9% 100 ML IVPB SCH (09:19)
[2018-09-11] MEDS ORDERED: Pneumococcal 23-Valent Vaccine IM ONE (10:00)
[2018-09-11] MEDS ORDERED: MethylPREDNISolone 1 gm Vial IV ONE (10:39)
[2018-09-11] MEDS ORDERED: methylPREDNISolone 1 GM in Sodium Chloride 0.9% 250 ML IV ONE (11:00)
--- NOTE | 2018-09-11 13:08 | CP.PCM.PN ---
Subjective - Date & Time of Evaluation Date of Evaluation: 09/11/18 Time of Evaluation: 13:08 - Subjective Subjective: Patient still able to ambulate to bathroom unassisted. She denies chest pain, shortness of breath, palpitations, bruising/bleeding. She is anxious about the news of bone marrow biopsy in [place] this afternoon. Objective - Vital Signs/Intake and Output Vital Signs (last 24 hours): Temp Pulse Resp BP Pulse Ox 98.2 F 85 20 98/63 L 100 09/11/18 07:00 09/11/18 07:36 09/11/18 07:00 09/11/18 07:00 09/11/18 07:00 Intake and Output: 09/11/18 09/11/18 06:59 18:59 Intake Total 300 Balance 300 - Medications Medications: Current Medications Ferric Sodium Gluconate Complex 125 mg/ Sodium Chloride 110 mls @ 100 mls/hr IVPB DAILY ANNA Stop: 09/18/18 10:01 Last Admin: 09/11/18 09:19 Dose: 100 mls/hr - Labs Labs: 09/11/18 06:47 09/11/18 06:47 PT 12.5 SECONDS (9.7-12.2) H 09/11/18 06:47 INR 1.1 09/11/18 06:47 APTT 30 SECONDS (21-34) 09/11/18 06:47 - Constitutional Appears: Well, Non-toxic, In Acute Distress (tearful when discussing bone marrow bx) - Head Exam Head Exam: ATRAUMATIC, NORMAL INSPECTION - Eye Exam Eye Exam: EOMI, Normal appearance - ENT Exam ENT Exam: Mucous Membranes Moist, Normal Exam Additional comments: no bleeding or petechiae observed in oropharyngeal area - Neck Exam Neck Exam: Normal Inspection - Respiratory Exam Respiratory Exam: Clear to Ausculation Bilateral, NORMAL BREATHING PATTERN - Cardiovascular Exam Cardiovascular Exam: REGULAR RHYTHM - GI/Abdominal Exam GI & Abdominal Exam: Soft, Normal Bowel Sounds - Extremities Exam Extremities Exam: Normal Inspection - Psychiatric Exam Psychiatric exam: Normal Affect, Normal Mood - Skin Skin Exam: Dry, Intact, Normal Color, Warm Additional comments: no petechiae or bleeding seen upon full skin exam Assessment and Plan - Assessment and Plan (Free Text) Assessment: 23 y/o female with PMHx of blood dyscrasias since 2014 presents to the ED from outpatient clinic Dr. Garcia (heme onc) due to critical lab values 09/09, - severe thrombocytopenia and anemia. 1) severe symptomatic anemia -Hg uptrending currently 8.2 -2/2 iron deficiency anemia; patient with normal folate and B12 even despite vegetarian diet, MCV 54 (microcytic). Iron studies consistent with iron deficiency anemia -s/p 2 units PRBC 09/09 and 09/10 respectively, 1 unit platelets 09/10 -IV ferricelet daily - given this morning -ck/indirect ck, hemoglobinopathy work up pending 2) severe thrombocytopenia -platelets uptrending 7 -> [address] head, CXR, Abd US and pelvic US no evidence of acute bleed. Solumedrol 1g given again (once each day 09/09-). Drug screen negative. -neuro q4h and thorough skin exam to be monitored due to increased risk of bleeding. -fall precautions to continue -ID workup pending for mycoplasma and malaria. Hepatitis negative. -other workup: [id number] deficiency, Lupus, flow cytometry, SPEP -bone marrow bx today 09/11 in [facility] by Dr. Erik Mello (IR). Pending results and awiting Dr. Garcia's recs. -*Hold DVT ppx! DVT/GI ppx: none 2/2 thrombocytopenia case discussed with Dr. Newell. Milagro Tobar, DO PGY-1
[2018-09-12 07:18] LABS: INR 1.1
[2018-09-12 07:28] LABS: BASO % 0.1 % (0.0-2.0); HEMOGLOBIN 7.9 g/dL (11.0-16.0); LYMPH # 1.2 K/uL (1.0-4.3); LYMPH % 10.8 % (20.0-40.0); MEAN CORPUSCULAR HEMOGLOBIN 18.5 pg (27.0-31.0); MEAN CORPUSCULAR HGB CONC 28.4 g/dL (33.0-37.0); MONO # 0.6 K/uL (0.0-0.8); MONO % 5.5 % (0.0-10.0); NEUT # 9.6 K/uL (1.8-7.0); NEUT % 83.6 % (50.0-75.0); NRBC % 0.1 % (0.0-2.0); RBC 4.27 Mil/uL (3.80-5.20); WHITE BLOOD COUNT 11.5 K/uL (4.8-10.8)
[2018-09-12 07:37] LABS: PLATELET COUNT 13 K/uL (130-400)
[2018-09-12 07:40] LABS: ALB/GLOB RATIO 1.1 (1.0-2.1); ALT/SGPT 11 U/L (9-52); AST/SGOT 9 U/L (14-36); BLOOD UREA NITROGEN 8 mg/dL (7-17); CALCIUM 9.4 mg/dl (8.6-10.4); GFR NON-AFRICAN AMERICAN > 60
[2018-09-12 09:37] LABS: LYMPHOCYTE 11 % (20-40); MONOCYTE 6 % (0-10); NEUTROPHIL 83 % (50-75); PLATELET ESTIMATE MARKEDLY DECREASED (NORMAL); TOTAL CELLS COUNTED 100
[2018-09-12 09:38] LABS: ANISOCYTOSIS MARKED; HYPOCHROMIC MODERATE; MICROCYTOSIS SLIGHT; POIKILOCYTOSIS MODERATE; POLYCHROMIC SLIGHT
[2018-09-12 09:39] LABS: OVALOCYTES SLIGHT; SCHISTOCYTES SLIGHT; SPHEROCYTES SLIGHT; TEARDROP CELLS SLIGHT
[2018-09-12] MEDS ORDERED: Sodium Chloride 0.9% 1,000 ML IV ONE (10:11)
--- NOTE | 2018-09-12 10:25 | CP.PCM.PN ---
Subjective - Date & Time of Evaluation Date of Evaluation: 09/12/18 Time of Evaluation: 10:00 - Subjective Subjective: Medical Attending Note: Patient seen and examined this morning. Patient is status post bone marrow biopsy POD1. Patient denies headache, denies chest pain, denies cough, denies dizziness, denies abdominal pain, denies nausea, denies vomitting, and she reports mild pain over the iliac crest. Objective - Vital Signs/Intake and Output Vital Signs (last 24 hours): Temp Pulse Resp BP Pulse Ox 98.8 F 82 18 88/63 L 99 09/12/18 08:20 09/12/18 08:20 09/12/18 08:20 09/12/18 08:20 09/12/18 08:20 Intake and Output: 09/12/18 09/12/18 06:59 18:59 Intake Total 250 Balance 250 - Medications Medications: Current Medications Ferric Sodium Gluconate Complex 125 mg/ Sodium Chloride 110 mls @ 100 mls/hr IVPB DAILY ANNA Stop: 09/18/18 10:01 Last Admin: 09/11/18 09:19 Dose: 100 mls/hr Sodium Chloride (Sodium Chloride 0.9%) 1,000 mls @ 1,000 mls/hr IV .Q1H ONE Stop: 09/12/18 11:10 - Labs Labs: 09/12/18 06:57 09/12/18 06:57 PT 12.0 SECONDS (9.7-12.2) 09/12/18 06:57 INR 1.1 09/12/18 06:57 APTT 29 SECONDS (21-34) 09/12/18 06:57 - Constitutional Appears: Non-toxic, No Acute Distress - Head Exam Head Exam: NORMAL INSPECTION - Eye Exam Eye Exam: EOMI - ENT Exam ENT Exam: Mucous Membranes Moist - Respiratory Exam Respiratory Exam: Clear to Ausculation Bilateral, NORMAL BREATHING PATTERN. absent: Rales, Rhonchi, Wheezes - Cardiovascular Exam Cardiovascular Exam: REGULAR RHYTHM, +S1, +S2 - GI/Abdominal Exam GI & Abdominal Exam: Soft, Normal Bowel Sounds. absent: Distended, Firm, Guarding, Rigid, Tenderness, Rebound - Extremities Exam Extremities Exam: absent: Pedal Edema, Tenderness - Back Exam Additional comments: back at iliac crest: clean/dry/intact; mild pain on palptation - Neurological Exam Neurological Exam: Alert, Awake, Oriented x3 - Psychiatric Exam Psychiatric exam: Normal Affect, Normal Mood - Skin Skin Exam: Dry, Intact, Normal Color, Warm. absent: Diaphoretic, Petechiae, Rash Assessment and Plan (1) Severe thrombocytopenia Status: Acute (2) Severe anemia Status: Acute (3) Prophylactic measure Status: Acute Attending/Attestation - Attestation I have personally seen and examined this patient.: Yes I have fully participated in the care of the patient.: Yes I have reviewed all pertinent clinical information, including history, physical exam and plan: Yes Notes (Text): Assessment/Plan 1) severe symptomatic anemia Assessment/Plan * Hematology (Dr. Toledo) on case-->help appreciated * Iron deficiency anemia; patient with normal folate and B12 even despite vegetarian diet, MCV 54 (microcytic) * Type and cross, 2 units PRBC, 1 unit platelets and consent two days ago * c/w IV iron * iron studies: low * Reticulocyte count: high * hemoglobinpathy eval: pending * ck/indirect ck pending * status bone marrow * negative UDS 2) severe thrombocytopenia Assessment/Plan * CT head: no acute bleed * No petechiae, no bleeding, no epistaxsis * peripheral blood smear-->hypochromic; no schistocytes observed * Abdominal US shows splenomegaly. * fall precautions * Discussed with heme-onc * solumedrol 1g IV today * HIV: negative hepatitis: negative, mycoplasma * other workup: * Pending: [id number] deficiency, Lupus, LDH, flow cytometry, spep, hemoglobinopathy eval * Patient is kashia to vahid; blood parasites: negative * Drug screen low suspicion 3) Leukocytosis Assessment/Plan * Blood cultures (09/10/18): no growth * Patient received IV steroid 4) Constipation Assessment/Plan * start colace 100mg PO bid 5) Prophylactic measure * No chemical anticoagulation secondary to thrombocytopenia * no GI ppx secondary to thrombocytopenia * Fall precautions * Neurochecks * Pt/OT eval
[2018-09-12] MEDS ORDERED: Oxycodone/Acetaminophen 5/325 mg Tab PO ONE (10:45)
[2018-09-12] MEDS: Ferric Sodium Gluconat Complex 125 MG in Sodium Chloride 0.9% 100 ML IVPB SCH (11:27)
--- NOTE | 2018-09-12 20:27 | CP.PCM.PN ---
<Cornell Carroll - Last Filed: 09/13/18 03:29> Subjective - Date & Time of Evaluation Date of Evaluation: 09/13/18 Time of Evaluation: 03:29 - Subjective Subjective: PGY-[address] Newell - 09/13 Progress Note Patient still able to ambulate to bathroom unassisted. Patient sitting in bed comfortably eating dinner. No acute complaints. She denies chest pain, shortness of breath, palpitations, bruising/bleeding. Objective - Vital Signs/Intake and Output Vital Signs (last 24 hours): Temp Pulse Resp BP Pulse Ox 97.8 F 85 20 98/58 L 96 09/12/18 15:00 09/12/18 16:23 09/12/18 15:00 09/12/18 15:00 09/12/18 15:00 - Medications Medications: Current Medications Docusate Sodium (Colace) 100 mg PO BID [facility] Last Admin: 09/12/18 17:19 Dose: 100 mg Ferric Sodium Gluconate Complex 125 mg/ Sodium Chloride 110 mls @ 100 mls/hr IVPB DAILY ANNA Stop: 09/18/18 10:01 Last Admin: 09/12/18 11:27 Dose: 100 mls/hr Prednisone (Prednisone Tab) 60 mg PO Q24H ANNA Stop: 09/18/18 15:01 Last Admin: 09/12/18 15:01 Dose: 60 mg - Labs Labs: 09/12/18 06:57 09/12/18 06:57 PT 12.0 SECONDS (9.7-12.2) 09/12/18 06:57 INR 1.1 09/12/18 06:57 APTT 29 SECONDS (21-34) 09/12/18 06:57 - Constitutional Appears: Well, Non-toxic, No Acute Distress - Head Exam Head Exam: ATRAUMATIC, NORMAL INSPECTION - Eye Exam Eye Exam: EOMI, Normal appearance, PERRL Pupil Exam: PERRL - ENT Exam ENT Exam: Mucous Membranes Moist Additional comments: no bleeding or petechiae observed in oropharyngeal area - Respiratory Exam Respiratory Exam: Clear to Ausculation Bilateral, NORMAL BREATHING PATTERN. absent: Wheezes - Cardiovascular Exam Cardiovascular Exam: RRR, +S1, +S2 - GI/Abdominal Exam GI & Abdominal Exam: Soft, Normal Bowel Sounds. absent: Tenderness - Extremities Exam Extremities Exam: Full ROM, Normal Inspection. absent: Pedal Edema, Tenderness - Neurological Exam Neurological Exam: Alert, Awake, Oriented x3 - Psychiatric Exam Psychiatric exam: Normal Affect, Normal Mood - Skin Skin Exam: Dry, Intact, Normal Color, Warm Additional comments: no petechiae or bleeding seen upon full skin exam Assessment and Plan - Assessment and Plan (Free Text) Assessment: 23 y/o female with PMHx of blood dyscrasias since 2014 presents to the ED from outpatient clinic Dr. Garcia (heme onc) due to critical lab values 09/09, - severe thrombocytopenia and anemia. 1) severe symptomatic anemia -Hg 7.9, has improved -2/2 iron deficiency anemia; patient with normal folate and B12 even despite vegetarian diet, MCV 54 (microcytic). Iron studies consistent with iron def iciency anemia -s/p 2 units PRBC 09/09 and 09/10 respectively, 1 unit platelets 09/10 -IV ferricelet daily - given this morning -ck/indirect ck, hemoglobinopathy work up pending 2) severe thrombocytopenia -platelets uptrending 7 -> [address] head, CXR, Abd US and pelvic US no evidence of acute bleed. Solumedrol 1g given again (once each day 09/09-). Drug screen negative. -neuro q4h and thorough skin exam to be monitored due to increased risk of bleeding. -fall precautions to continue -ID workup pending for mycoplasma and malaria. Hepatitis negative. -other workup: [id number] deficiency, Lupus, flow cytometry, SPEP -bone marrow bx today 09/11 in [facility] by Dr. Erik Mello (IR). Pending results and awiting Dr. Garcia's recs. -*Hold DVT ppx! DVT/GI ppx: none 2/2 thrombocytopenia case discussed with Dr. Newell. Cornell Carroll, DO PGY-1 <Chana Newell V - Last Filed: 09/15/18 18:26> Objective - Vital Signs/Intake and Output Vital Signs (last 24 hours): Temp Pulse Resp BP Pulse Ox 98.6 F 100 H 20 105/70 99 09/15/18 15:38 09/15/18 15:38 09/15/18 15:38 09/15/18 15:38 09/15/18 15:38 Intake and Output: 09/15/18 09/15/18 06:59 18:59 Intake Total 600 Balance 600 - Labs Labs: 09/15/18 08:05 09/15/18 08:05 PT 11.7 SECONDS (9.7-12.2) 09/15/18 08:05 INR 1.1 09/15/18 08:05 APTT 28 SECONDS (21-34) 09/15/18 08:05 Assessment and Plan (1) Severe thrombocytopenia Status: Acute (2) Severe anemia Status: Acute (3) Prophylactic measure Status: Acute Attending/Attestation - Attestation I have personally seen and examined this patient.: Yes I have fully participated in the care of the patient.: Yes I have reviewed all pertinent clinical information, including history, physical exam and plan: Yes Notes (Text): This is late computer entry for 09/13/18. Patient seen, examined and case discussed with medical stenographer. No events overnight. No complaints. Patient and present; eager to go home. No headache, no bleeding, no rash noted. We are awaiting bone marrow result that was completed two days ago; may need IVIG pending result per heme-oncology. Patient started on high dose steroid per recommendation of heme-oncology. Assessment/Plan 1) severe symptomatic anemia Assessment/Plan * Hematology (Dr. Toledo) on case-->help appreciated * Iron deficiency anemia; patient with normal folate and B12 even despite vegetarian diet, MCV 54 (microcytic) * Type and cross, 2 units PRBC, 1 unit platelets and consent three days ago * c/w IV iron * iron studies: low * Reticulocyte count: high * hemoglobinpathy eval: pending * ck/indirect ck pending * status bone marrow pod 2 * [facility] and will need to be relayed to heme-oncology * negative UDS 2) severe thrombocytopenia Assessment/Plan * CT head: no acute bleed * No petechiae, no bleeding, no epistaxsis * peripheral blood smear-->hypochromic; no schistocytes observed * Abdominal US shows splenomegaly. * fall precautions * Discussed with heme-onc * HIV: negative hepatitis: negative, mycoplasma * [facility] and will need to be relayed to heme-oncology * negative UDS * Prednisone 60mg PO daily (day 2) * other workup: * Pending: [id number] deficiency, Lupus, LDH, flow cytometry, spep, hemoglobinopathy eval * Patient is council to vahid; blood parasites: negative * Drug screen low suspicion 3) Leukocytosis Assessment/Plan * Blood cultures (09/10/18): no growth * Patient received IV steroid 4) Constipation Assessment/Plan * c/w colace 100mg PO bid 5) Prophylactic measure * No chemical anticoagulation secondary to thrombocytopenia * no GI ppx secondary to thrombocytopenia * Fall precautions * Neurochecks * Pt/OT eval
[2018-09-13 07:49] LABS: LYMPH # 2.7 K/uL (1.0-4.3); MEAN PLATELET VOLUME 9.1 fL (7.2-11.7); MONO # 0.9 K/uL (0.0-0.8); NRBC % 0.2 % (0.0-2.0); RBC 4.34 Mil/uL (3.80-5.20)
[2018-09-13 07:51] LABS: INR 1.1; PROTHROMBIN TIME 12.3 SECONDS (9.7-12.2)
[2018-09-13 08:01] LABS: BASO % 0.3 % (0.0-2.0); HEMOGLOBIN 8.4 g/dL (11.0-16.0); LYMPH % 19.7 % (20.0-40.0); MEAN CELL VOLUME 66.2 fL (81.0-99.0); MEAN CORPUSCULAR HEMOGLOBIN 19.4 pg (27.0-31.0); MEAN CORPUSCULAR HGB CONC 29.3 g/dL (33.0-37.0); MONO % 6.7 % (0.0-10.0); NEUT % 73.3 % (50.0-75.0); RED CELL DISTRIBUTION WIDTH 35.1 % (11.5-14.5); WHITE BLOOD COUNT 13.7 K/uL (4.8-10.8)
[2018-09-13 08:06] LABS: ALB/GLOB RATIO 1.2 (1.0-2.1); ALBUMIN 4.1 g/dL (3.5-5.0); ALT/SGPT 47 U/L (9-52); AST/SGOT 30 U/L (14-36); BLOOD UREA NITROGEN 7 mg/dL (7-17); CALCIUM 9.4 mg/dl (8.6-10.4); GFR NON-AFRICAN AMERICAN > 60
[2018-09-13] MEDS: Ferric Sodium Gluconat Complex 125 MG in Sodium Chloride 0.9% 100 ML IVPB SCH (09:48)
[2018-09-14 07:19] LABS: INR 1.1; PROTHROMBIN TIME 11.5 SECONDS (9.7-12.2)
[2018-09-14 07:30] LABS: MONO # 0.9 K/uL (0.0-0.8); NRBC % 0.1 % (0.0-2.0); RED CELL DISTRIBUTION WIDTH 36.2 % (11.5-14.5)
[2018-09-14 07:33] LABS: ALB/GLOB RATIO 1.2 (1.0-2.1); ALBUMIN 4.2 g/dL (3.5-5.0); ALT/SGPT 33 U/L (9-52); AST/SGOT 13 U/L (14-36); BLOOD UREA NITROGEN 13 mg/dL (7-17); CALCIUM 9.4 mg/dl (8.6-10.4); GFR NON-AFRICAN AMERICAN > 60
[2018-09-14 08:02] LABS: BASO % 0.1 % (0.0-2.0); HEMOGLOBIN 9.2 g/dL (11.0-16.0); LYMPH # 3.2 K/uL (1.0-4.3); LYMPH % 19.3 % (20.0-40.0); MEAN CELL VOLUME 66.9 fL (81.0-99.0); MEAN CORPUSCULAR HEMOGLOBIN 19.4 pg (27.0-31.0); MONO % 5.3 % (0.0-10.0); NEUT # 12.5 K/uL (1.8-7.0); NEUT % 75.3 % (50.0-75.0); RBC 4.73 Mil/uL (3.80-5.20); WHITE BLOOD COUNT 16.6 K/uL (4.8-10.8)
--- NOTE | 2018-09-14 10:51 | CP.PCM.PN ---
Subjective - Date & Time of Evaluation Date of Evaluation: 09/14/18 Time of Evaluation: 10:50 - Subjective Subjective: Patient seen and examined at bedside. Denies bleeding or brusing from any surface of body, patch still on from bone marrow bx sacral area without bleeding. No complaints. Objective - Vital Signs/Intake and Output Vital Signs (last 24 hours): Temp Pulse Resp BP Pulse Ox 98.4 F 70 18 101/66 98 09/14/18 07:00 09/14/18 07:00 09/14/18 07:00 09/14/18 07:00 09/14/18 07:00 Intake and Output: 09/14/18 09/14/18 06:59 18:59 Intake Total 240 Balance 240 - Medications Medications: Current Medications Docusate Sodium (Colace) 100 mg PO BID [facility] Last Admin: 09/14/18 10:07 Dose: 100 mg Ferric Sodium Gluconate Complex 125 mg/ Sodium Chloride 110 mls @ 100 mls/hr IVPB DAILY ANNA Stop: 09/18/18 10:01 Last Admin: 09/13/18 09:48 Dose: 100 mls/hr Prednisone (Prednisone Tab) 60 mg PO Q24H ANNA Stop: 09/18/18 15:01 Last Admin: 09/13/18 14:05 Dose: 60 mg - Labs Labs: 09/14/18 06:58 09/14/18 06:58 PT 11.5 SECONDS (9.7-12.2) 09/14/18 06:58 INR 1.1 09/14/18 06:58 APTT 29 SECONDS (21-34) 09/14/18 06:58 - Head Exam Head Exam: ATRAUMATIC, NORMAL INSPECTION - Eye Exam Eye Exam: EOMI, Normal appearance - ENT Exam ENT Exam: Mucous Membranes Moist - Respiratory Exam Respiratory Exam: Clear to Ausculation Bilateral, NORMAL BREATHING PATTERN - Cardiovascular Exam Cardiovascular Exam: REGULAR RHYTHM - GI/Abdominal Exam GI & Abdominal Exam: Soft, Normal Bowel Sounds - Back Exam Additional comments: dressing in lower lumbar area clean, dry, and intact from bone marrow bx - Neurological Exam Neurological Exam: Alert, Awake, Oriented x3 - Psychiatric Exam Psychiatric exam: Normal Affect, Normal Mood - Skin Skin Exam: Dry, Intact, Normal Color, Warm Additional comments: no petechiae or bleeding upon full skin exam Assessment and Plan - Assessment and Plan (Free Text) Assessment: 23 y/o female with PMHx of blood dyscrasias since 2014 presents to the ED from outpatient clinic Dr. Garcia (heme onc) due to critical lab values 09/09, - severe thrombocytopenia and anemia. 1) severe symptomatic anemia -Hg 9.2 has improved from admission 4.8 -2/2 iron deficiency anemia; patient with normal folate and B12 even despite vegetarian diet, MCV 54 (microcytic). Iron studies consistent with iron deficiency anemia -s/p 2 units PRBC 09/09 and 09/10 respectively, 1 unit platelets 09/10 -IV ferricelet daily 2) severe thrombocytopenia -platelets uptrending 20 - 09/14 (record high on this admission) STAT CT head, CXR, Abd US and pelvic US no evidence of acute bleed. Solumedrol 1g given again (once each day 09/09-). Drug screen negative. -neuro q4h and thorough skin exam to be monitored due to increased risk of bleeding. -fall precautions to continue -Hepatitis and HIV negative -f/u: [id number] deficiency, Lupus, flow cytometry, SPEP -bone marrow bx 09/11 in [facility] by Dr. Erik Mello (IR). Pending results and awaiting Dr. Garcia's recs - will need bx results before starting IVIG. -prednisone 60 mg PO daily -*Hold DVT ppx! DVT/GI ppx: none 2/2 thrombocytopenia case discussed with Dr. Danny Tobar DO PGY-1 Addendum: Spoke to [facility] 09/14. Bone marrow bx sample sent out today. Expect results Sep 16 or Sep 17. -Milagro Tobar DO
[2018-09-14] MEDS: Ferric Sodium Gluconat Complex 125 MG in Sodium Chloride 0.9% 100 ML IVPB SCH (11:00)
[2018-09-14 16:21] VITALS: RESP 20
[2018-09-14 18:42] LABS: HEMOGLOBIN A 97.3 Percent (>96.0); HEMOGLOBIN A2 1.7 Percent (1.8-3.5)
[2018-09-15 08:12] LABS: BASO % 0.1 % (0.0-2.0); HEMOGLOBIN 9.6 g/dL (11.0-16.0); LYMPH # 1.5 K/uL (1.0-4.3); LYMPH % 6.3 % (20.0-40.0); MEAN CELL VOLUME 68.1 fL (81.0-99.0); MEAN CORPUSCULAR HEMOGLOBIN 19.9 pg (27.0-31.0); MEAN CORPUSCULAR HGB CONC 29.3 g/dL (33.0-37.0); MEAN PLATELET VOLUME 11.2 fL (7.2-11.7); MONO # 0.6 K/uL (0.0-0.8); MONO % 2.6 % (0.0-10.0); NEUT # 21.2 K/uL (1.8-7.0); RBC 4.81 Mil/uL (3.80-5.20); RED CELL DISTRIBUTION WIDTH 36.8 % (11.5-14.5); WHITE BLOOD COUNT 23.3 K/uL (4.8-10.8)
[2018-09-15 08:19] LABS: INR 1.1; PROTHROMBIN TIME 11.7 SECONDS (9.7-12.2)
[2018-09-15 08:27] LABS: PLATELET COUNT 52 K/uL (130-400)
[2018-09-15 08:54] LABS: ALB/GLOB RATIO 1.2 (1.0-2.1); ALBUMIN 4.4 g/dL (3.5-5.0); ALT/SGPT 29 U/L (9-52); AST/SGOT 14 U/L (14-36); BLOOD UREA NITROGEN 8 mg/dL (7-17); CALCIUM 9.7 mg/dl (8.6-10.4); GFR NON-AFRICAN AMERICAN > 60
[2018-09-15 09:32] LABS: LYMPHOCYTE 6 % (20-40); MONOCYTE 1 % (0-10); NEUTROPHIL 93 % (50-75); PLATELET ESTIMATE DECREASED (NORMAL); TOTAL CELLS COUNTED 100
[2018-09-15 09:33] LABS: ANISOCYTOSIS SLIGHT; HYPOCHROMIC SLIGHT; MICROCYTOSIS SLIGHT; OVALOCYTES SLIGHT; POIKILOCYTOSIS SLIGHT
[2018-09-15 09:34] LABS: TEARDROP CELLS SLIGHT
[2018-09-15 09:35] LABS: TARGET CELLS SLIGHT
[2018-09-15] MEDS: Ferric Sodium Gluconat Complex 125 MG in Sodium Chloride 0.9% 100 ML IVPB SCH (10:06)
--- NOTE | 2018-09-15 13:54 | CP.PCM.DIS ---
Provider - Provider Date of Admission: 09/09/18 13:48 Attending physician: Chana Newell DO Time Spent in preparation of Discharge (in minutes): 45 Hospital Course - Lab Results Lab Results: Micro Results 09/10/18 10:15 Blood Blood Culture - Final NO GROWTH AFTER 5 DAYS 09/10/18 10:15 Blood Gram Stain - Final TEST NOT PERFORMED 09/10/18 10:23 Blood Blood Culture - Final NO GROWTH AFTER 5 DAYS 09/10/18 10:23 Blood Gram Stain - Final TEST NOT PERFORMED Most Recent Lab Values WBC 23.3 K/uL (4.8-10.8) H 09/15/18 08:05 RBC 4.81 Mil/uL (3.80-5.20) 09/15/18 08:05 Hgb 9.6 g/dL (11.0-16.0) L 09/15/18 08:05 Hct 32.8 % (34.0-47.0) L 09/15/18 08:05 MCV 68.1 fL (81.0-99.0) L 09/15/18 08:05 MCH 19.9 pg (27.0-31.0) L 09/15/18 08:05 MCHC 29.3 g/dL (33.0-37.0) L 09/15/18 08:05 RDW 36.8 % (11.5-14.5) H 09/15/18 08:05 Plt Count 52 K/uL (130-400) L D 09/15/18 08:05 Manual Plt Count 7 K/uL (130-400) L* 09/10/18 17:02 MPV 11.2 fL (7.2-11.7) 09/15/18 08:05 Neut % (Auto) 91.0 % (50.0-75.0) H 09/15/18 08:05 Lymph % (Auto) 6.3 % (20.0-40.0) L 09/15/18 08:05 Forest % (Auto) 2.6 % (0.0-10.0) 09/15/18 08:05 Eos % (Auto) 0.0 % (0.0-4.0) 09/15/18 08:05 Baso % (Auto) 0.1 % (0.0-2.0) 09/15/18 08:05 Neut # (Auto) 21.2 K/uL (1.8-7.0) H 09/15/18 08:05 Lymph # (Auto) 1.5 K/uL (1.0-4.3) 09/15/18 08:05 Forest # (Auto) 0.6 K/uL (0.0-0.8) 09/15/18 08:05 Eos # (Auto) 0.0 K/uL (0.0-0.7) 09/15/18 08:05 Baso # (Auto) 0.0 K/uL (0.0-0.2) 09/15/18 08:05 Neutrophils % (Manual) 93 % (50-75) H 09/15/18 08:05 Lymphocytes % (Manual) 6 % (20-40) L 09/15/18 08:05 Monocytes % (Manual) 1 % (0-10) 09/15/18 08:05 Differential Comment 09/09/18 13:01 Platelet Estimate Decreased (NORMAL) L 09/15/18 08:05 Polychromasia Slight 09/12/18 06:57 Hypochromasia (manual) Slight 09/15/18 08:05 Poikilocytosis (manual Slight 09/15/18 08:05 Anisocytosis (manual) Slight 09/15/18 08:05 Microcytosis (manual) Slight 09/15/18 08:05 Macrocytosis (manual) Slight 09/15/18 08:05 Spherocytes Slight 09/12/18 06:57 Target Cells Slight 09/15/18 08:05 Tear Drop Cells Slight 09/15/18 08:05 Ovalocytes Slight 09/15/18 08:05 Schistocytes Slight 09/12/18 06:57 Smear Path Review 09/09/18 13:01 Retic Count 5.0 % (0.5-1.5) H 09/09/18 14:32 Hemoglobin A 97.3 Percent (>96.0) 09/10/18 06:50 Hemoglobin A2 1.7 Percent (1.8-3.5) L 09/10/18 06:50 Hemoglobin C 0.0 Percent (0.0-0.0) 09/10/18 06:50 Hemoglobin F () <1.0 Percent (<2.0) 09/10/18 06:50 Hemoglobin S 0.0 Percent (0.0-0.0) 09/10/18 06:50 Variant Hemoglobin 0.0 Percent (0.0-0.0) 09/10/18 06:50 Hemoglobinopathy Red Blood Count 4.34 Mill/mcL (3.80-5.10) 09/10/18 06:50 Hemoglobinopathy Hct 29.3 % (35.0-45.0) L 09/10/18 06:50 Hemoglobinopathy Hgb 8.4 g/dL (11.7-15.5) L 09/10/18 06:50 Hemoglobinopathy MCV 67.5 fL (80.0-100.0) L 09/10/18 06:50 Hemoglobinopathy MCH 19.3 pg (27.0-33.0) L 09/10/18 06:50 Hemoglobinopathy RDW 33.9 % (11.0-15.0) H 09/10/18 06:50 Hemoglobinopathy Interp See note 09/10/18 06:50 Haptoglobin 66.8 mg/dL (30.0-200.0) 09/10/18 06:50 PT 11.7 SECONDS (9.7-12.2) 09/15/18 08:05 INR 1.1 09/15/18 08:05 APTT 28 SECONDS (21-34) 09/15/18 08:05 Fibrinogen 305 mg/dL (200-400) 09/10/18 06:50 Fibrin Degrad Products Negative (NEGATIVE) 09/10/18 06:50 Fibrin Degrad Prod, Qt <10 ug/mL (<10) 09/10/18 06:50 [id number] Inhibitor 134 % Activity (68-163) 09/10/18 06:50 [id number] Inhibit Titer (()) 09/10/18 06:50 Sodium 138 mmol/L (132-148) 09/15/18 08:05 Potassium 4.0 mmol/L (3.6-5.2) 09/15/18 08:05 Chloride 100 mmol/L (98-107) 09/15/18 08:05 Carbon Dioxide 24 mmol/L (22-30) 09/15/18 08:05 Anion Gap 18 (10-20) 09/15/18 08:05 BUN 8 mg/dL (7-17) 09/15/18 08:05 Creatinine 0.3 mg/dL (0.7-1.2) L 09/15/18 08:05 Est GFR ( Amer) > 60 09/15/18 08:05 Est GFR (Non-Af Amer) > 60 09/15/18 08:05 Random Glucose 125 mg/dL (65-105) H 09/15/18 08:05 Calcium 9.7 mg/dl (8.6-10.4) 09/15/18 08:05 Iron 18 ug/dL (37-170) L 09/09/18 14:45 TIBC 520 ug/dL (250-450) H 09/10/18 06:50 % Saturation 3 (20-55) L 09/10/18 06:50 Ferritin 3.8 ng/mL 09/09/18 14:45 Total Bilirubin 0.9 mg/dL (0.2-1.3) 09/15/18 08:05 AST 14 U/L (14-36) 09/15/18 08:05 ALT 29 U/L (9-52) 09/15/18 08:05 Alkaline Phosphatase 78 U/L (38-126) 09/15/18 08:05 Lactate Dehydrogenase 448 U/L (313-618) 09/10/18 06:50 Total Protein 8.2 g/dL (6.3-8.3) 09/15/18 08:05 Total Protein (PEP) 6.8 g/dL (6.1-8.1) 09/09/18 14:45 Albumin 4.4 g/dL (3.5-5.0) 09/15/18 08:05 Albumin (PEP) 3.4 g/dL (3.8-4.8) L 09/09/18 14:45 Globulin 3.8 gm/dL (2.2-3.9) 09/15/18 08:05 Albumin/Globulin Ratio 1.2 (1.0-2.1) 09/15/18 08:05 Yxecx-3-Anixyvdwh 0.3 g/dL (0.2-0.3) 09/09/18 14:45 Zknas-4-Wuebqwqwn 0.6 g/dL (0.5-0.9) 09/09/18 14:45 Gqqc-5-Xdcklusq 0.5 g/dL (0.4-0.6) 09/09/18 14:45 Zvux-5-Opopkfgd 0.4 g/dL (0.2-0.5) 09/09/18 14:45 Gamma Globulins 1.6 g/dL (0.8-1.7) 09/09/18 14:45 Abnorm Protein Band 1 TEST NOT PERFORMED 09/09/18 14:45 Abnorm Protein Band 2 TEST NOT PERFORMED 09/09/18 14:45 Abnorm Protein Band 3 TEST NOT PERFORMED 09/09/18 14:45 Vitamin B12 341 pg/mL (239-931) 09/09/18 13:01 Folate 9.6 ng/mL 09/09/18 13:01 Urine Color Straw (YELLOW) 09/09/18 15:24 Urine Clarity Clear (Clear) 09/09/18 15:24 Urine pH 5.0 (5.0-8.0) 09/09/18 15:24 Ur Specific [place] 1.004 (1.003-1.030) 09/09/18 15:24 Urine Protein Negative mg/dL (NEGATIVE) 09/09/18 15:24 Urine Glucose (UA) Normal mg/dL (Normal) 09/09/18 15:24 Urine Ketones Negative mg/dL (NEGATIVE) 09/09/18 15:24 Urine Blood Negative (NEGATIVE) 09/09/18 15:24 Urine Nitrate Negative (NEGATIVE) 09/09/18 15:24 Urine Bilirubin Negative (NEGATIVE) 09/09/18 15:24 Urine Urobilinogen Normal mg/dL (0.2-1.0) 09/09/18 15:24 Ur Leukocyte Esterase Neg Natali/uL (Negative) 09/09/18 15:24 Urine WBC (Auto) 1 /hpf (0-5) 09/09/18 15:24 Ur Squamous Epith Cells 1 /hpf (0-5) 09/09/18 15:24 Urine Bacteria Few (<OCC) H 09/09/18 15:24 Urine HCG, Qual Negative (NEGATIVE) 09/09/18 15:24 Urine Opiates Screen Negative (NEGATIVE) 09/09/18 18:16 Urine Methadone Screen Negative (NEGATIVE) 09/09/18 18:16 Ur Barbiturates Screen Negative (NEGATIVE) 09/09/18 18:16 Ur Phencyclidine Scrn Negative (NEGATIVE) 09/09/18 18:16 Ur Amphetamines Screen Negative (NEGATIVE) 09/09/18 18:16 U Benzodiazepines Scrn Negative (NEGATIVE) 09/09/18 18:16 U Oth Cocaine Metabols Negative (NEGATIVE) 09/09/18 18:16 U Cannabinoids Screen Negative (NEGATIVE) 09/09/18 18:16 MANDA & SPEP Interp See note 09/09/18 14:45 Rheumatoid Factor <14 IU/mL (<14) 09/10/18 06:50 VANNESSA Screen Positive (NEGATIVE) H 09/10/18 06:50 VANNESSA Titer 1:320 titer H 09/10/18 06:50 VANNESSA Nuclear Membr Pat Positive (Negative) H 09/10/18 06:50 VANNESSA Pattern Speckled 09/10/18 06:50 SS-A Antibody <1.0 neg AI (<1.0 NEGATIVE) 09/10/18 06:50 SS-B Antibody <1.0 neg AI (<1.0 NEGATIVE) 09/10/18 06:50 Sm (Mello) Antibody <1.0 neg AI (<1.0 NEGATIVE) 09/10/18 06:50 SM/PROP[employer]ITION PLAYER Antibody <1.0 neg AI (<1.0 NEGATIVE) 09/10/18 06:50 Scl-70 Antibody <1.0 neg AI (<1.0 NEGATIVE) 09/10/18 06:50 Anti-ds DNA Titer (Crith) TNP 09/10/18 06:50 Anti-ds DNA (Crithidia) Negative (NEGATIVE) 09/10/18 06:50 Ribosomal P Prot Ab <1.0 neg AI (<1.0 NEGATIVE) 09/10/18 06:50 Anti-Mitochondrial Titr TNP 09/10/18 06:50 Anti-Mitochondrial Ab Negative (NEGATIVE) 09/10/18 06:50 Actin IgG Antibody <20 U 09/10/18 06:50 Myocardial Ab Titer TNP 09/10/18 06:50 Anti-Myocardial Ab Negative (NEGATIVE) 09/10/18 06:50 Thyroperoxidase Ab 10 IU/mL (<9) H 09/10/18 06:50 Complement C3 148 mg/dL (83-193) 09/10/18 06:50 Complement C4 19 mg/dL (15-57) 09/10/18 06:50 Hepatitis A IgM Ab Negative (NEGATIVE) 09/09/18 14:45 Hep Bs Antigen Negative (NEGATIVE) 09/09/18 14:45 Hep B Core IgM Ab Negative (NEGATIVE) 09/09/18 14:45 Hepatitis C Antibody Negative (NEGATIVE) 09/09/18 14:45 HIV 1&2 Antibody Screen Negative (NEGATIVE) 09/09/18 14:45 Blood Parasites Smear Negative (NEGATIVE) 09/09/18 14:45 Blood Type O POSITIVE 09/09/18 13:01 Antibody Screen Negative 09/09/18 13:01 SARBJIT, Poly Interpret Negative (NEGATIVE) 09/10/18 06:30 - Hospital Course Hospital Course: Hospital Course: 23 y/o female with blood dyscrasias since 2014 was admitted due to critical lab values Hb 4.8 and plt 11 from outpatient clinic [facility]. Patient's imaging and physical exam was negative for active bleeding. Patient has had dizziness/weakness for the past 3 weeks. During hospital course, hospitalist team was in frequent contact with Dr. Garcia. She has been getting IV ferricelet daily as well as prednisone. Bone marrow bx was completed at [facility] by Dr. Erik Mello (IR). Patient was released before the bx results were released as she continues to have the blood counts increase with the prednisone therapy, which she will be taking for the next two weeks recommended by Dr. Garcia. She will follow up at his clinic at his soonest available appointment. Infectious disease workup thus far has been negative. Of note, patient found to have +VANNESSA. Outpatient follow up in discharge planning has been put with Dr. Jurado, rheumatology. Admission History of Present Illness: 23 y/o female with PMHx of blood dyscrasias since 2014 presents to the emergency room upon referral from [facility]. She got bloodwork completed yesterday, 09/08, and was seen by him today, 09/09. He told her to go to the emergency room due to critical lab values (Hb 4.8 and plt 11). Of note, patient has been feeling weak and dizzy for the past 3 weeks. Her LMP was Oct 6. The cycle was longer but not any heavier. Patient has been a regular patient of [facility] in [place] since she first had such an episode of weakness/diziness in 2014 and also in [place] in March 2018. During her first episode, patient was on steroids for a year, and in March she was on it for a week. Patient currently not treated with steroids, but been recently taking iron supplements from her OBGYN, Dr. Castro. She recently moved from [place] since this past spring and is a patient of Dr. Castro and Dr. Garcia, the latter who she just saw for the first time. Patient denies TALLEY, abdominal pain, chest pain, shortness of breath, rash, easy bruising, and weight changes. Recent travel was just in [place] in Jul, however, denies being in a Malaria exposed environment. Patient is to be discharged home Patient is to take the following medications: -ferrous sulfate 325 mg take one by mouth daily (take with orange juice) -colace 100 mg take one by mouth twice a day -prednisone 20 mg take three by mouth once a day for a total of 60 mg daily for two weeks Patient is to follow up with: -Dr. Garcia (heme-onc) - soonest available appointment for bone marrow biopsy results and further management -Dr. Jurado (rheum) - for positive VANNESSA. -Patient is to find a primary care doctor. She is to follow up at the [facility] [phone]. If severe bleeding, bruising, trauma, recurring dizziness/lightheadedness occurs, seek medical attention immediately. All instructions explained to the patient and she agrees. - Date & Time of H&P Date of H&P: 09/15/18 Time of H&P: 13:49 Discharge Exam - Head Exam Head Exam: ATRAUMATIC, NORMAL INSPECTION Discharge Plan - Discharge Medications Prescriptions: Docusate [Colace] 100 mg PO BID #60 cap Ferrous Sulfate 325 mg PO DAILY #30 tablet predniSONE [Prednisone] 60 mg PO DAILY #42 tab - Follow Up Plan Condition: STABLE Disposition: HOME/ ROUTINE Instructions: Docusate, Ferrous Sulfate, Prednisone, Normocytic Normochromic Anemia (DC), Myelodysplastic Syndromes (GEN) Additional Instructions: Patient is to be discharged home Patient is to take the following medications: -ferrous sulfate 325 mg take one by mouth daily (take with orange juice) -colace 100 mg take one by mouth twice a day -prednisone 20 mg take three by mouth once a day for a total of 60 mg daily for two weeks Patient is to follow up with: -Dr. Garcia (heme-onc) - soonest available appointment for bone marrow biopsy results and further management -Dr. Jurado (rheum) - for positive VANNESSA. -Patient is to find a primary care doctor. She is to follow up at the [facility] at [facility] [phone]. If severe bleeding, bruising, trauma, recurring dizziness/lightheadedness occurs, seek medical attention immediately. All instructions explained to the patient and she agrees. Referrals: Mic Jurado MD [Staff Provider] - Olimpia Toledo MD [Staff Provider] -
[2018-09-15 15:39] VITALS: BP 105/70; PULSE 100; TEMP 98.6; O2SAT 99
--- NOTE | 2018-09-15 20:40 | PN ---
DATE: 09/15/2018 SUBJECTIVE: The patient is a 23-year-old admitted with Bicytopenia. I reviewed the pathology with Dr. Hernandes at [facility]. The pathology showed that there was no evidence of blast or lymphoproliferative disorder on flow cytometry. However, the full pathologic evaluation is still pending and will soon be available by tomorrow or day after. The patient is generally doing well and has been getting prednisone 60 mg p.o. 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 The patient is tolerating the treatment well and does not voice any new symptoms. The patient is feeling much better after blood transfusion and iron infusions. The patient denies any headache or fever. The patient denies any chest pain, shortness of breath, or palpitations. The patient denies any nausea, vomiting, abdominal pain, fever, or diarrhea. The patient denies any back pain, fever, or night sweats. REVIEW OF SYSTEMS: As above. PHYSICAL EXAMINATION: GENERAL: The patient is ambulatory. VITAL SIGNS: Afebrile. Pulse is 88 per minute, respirations 14 per minute. HEENT: Anicteric, unremarkable. NECK: Supple. No adenopathy. No JVD. CHEST: Bilateral air. No rales or rhonchi. ABDOMEN: Soft, nontender. Bowel sounds present. No hepatomegaly. The spleen is just palpable. EXTREMITIES: No clubbing. No cyanosis. No pedal edema. NEUROLOGIC: Alert, awake, oriented, nonfocal. SKIN: Did not reveal any petechia, bruises, or any hemorrhages. ASSESSMENT AND PLAN: Ines is a 23-year-old female who was admitted with severe anemia and thrombocytopenia. The patient received blood transfusion and iron infusions. With that, the patient has significantly improved symptomatically and is feeling much better. Today's blood work showed that the patient's hemoglobin has increased to 9.6, and platelet count today is 52,000. It is significantly higher than admission platelet count of less than 10. She is feeling much better. However, her WBC count has risen to 23.3. The peripheral smear shows an increase in polymorph. There is no increase in blast cells or any other premature cells. It seems that this is reactive and secondary to treatment with steroid and prednisone. This was explained to the patient and the service. The patient is doing well and we will keep her on prednisone until the full bone marrow biopsy report is available. The differential diagnosis, followup plans, followup on the labs, and other issues were discussed with the patient and her . If the bone marrow biopsy comes okay then we will plan the patient to be discharged on prednisone and have her follow up as an outpatient. This was discussed with the service. Olimpia Toledo MD MTDD
--- NOTE | 2018-09-16 11:10 | PN ---
DATE: 09/14/2018 SUBJECTIVE: The patient was seen yesterday on rounds on 09/14/2018, on Friday. The patient's lab work, imaging studies, etc. were reviewed and discussed with the patient and . Ines is a 23-year-old female who was admitted from my office with severe anemia and severe thrombocytopenia. The patient received packed red blood cell transfusion and blood transfusion. The patient also received Solu-Medrol 1 g IV daily for three days. The patient also underwent one more aspirate biopsy per Dr. Erik Mello at [facility]. I discussed bone marrow aspirate findings with Dr. Brooklyn Hernandes; however, the final path is pending. The patient is generally doing well. The patient is also having iron deficiency for which she is getting intravenous iron in the form of Ferrlecit. The patient's hemoglobin is now 9.2, platelet count is 20,000 and WBC count is 16.6. The patient is generally doing well and feeling much better after blood transfusion. The patient denies any fever, bleeding, petechiae, epistaxis or rectal bleed. The patient denies any headaches or any neurological problems. The patient denies any chest pain, shortness of breath, or palpitation. The patient denies any nausea, vomiting, abdominal pain, diarrhea or back pain. REVIEW OF SYSTEMS: As above. PHYSICAL EXAMINATION: GENERAL: The patient is ambulatory. VITAL SIGNS: Afebrile. Pulse of 72 per minute, respirations 16 per minute. HEENT: Anicteric and unremarkable. NECK: Supple. No adenopathy. No JVD. CHEST: Bilateral air. No rales or rhonchi. ABDOMEN: Soft and nontender. Bowel sounds present.spleen_ is palpable. No hepatomegaly. EXTREMITIES: No pedal edema. No clubbing. No cyanosis. BACK: Did not reveal any tenderness or deformity. SKIN: Did not reveal any petechiae, bruises or skin rashes. NEUROLOGICAL: Alert, awake, oriented and ambulatory. ASSESSMENT AND PLAN: nIes is a 23-year-old female who was admitted from my office with bicytopenia, severe symptomatic anemia and severe thrombocytopenia. The patient received blood transfusions with two units of packed red blood cells. The patient also was treated with Solu-Medrol. The patient also underwent bone marrow biopsy to further evaluate the cause for bicytopenia. The differential diagnoses include rule out leukemia, rule out lymphoma, rule out aplastic anemia, rule out any other infiltrate like myeloma or cancer. This was discussed in great detail with the patient and pathologist. The patient's bone marrow aspirate is being processed and just speak for flow cytometry and cytogenetics and other studies. In the meantime, the patient is doing well and there could be a plan for discharge and have the patient follow up as an outpatient. Treatment with intravenous immunoglobulin was also discussed with the patient for her severe thrombocytopenia. The risk and benefits were discussed with the patient. The patient understood the issues well and will let us know. Olimpia Toledo MD MT[place]renton
== END 2018-09-15 17:27 | disposition home or self-care (01) | DRG 812 ==
LOC: C.ER 12:15 → C.9E 13:48 → C.3T 15:47 → C.9E 16:27 → C.6T 17:21
PROVIDERS: ADMIT Hospitalist; ATTEND Hospitalist
PROC: 30233R1 Transfusion of Nonautologous Platelets into Peripheral Vein, Percutaneous Approach (ICD-10-PCS; principal; 2018-09-09)
PROC: 30233N1 Transfusion of Nonautologous Red Blood Cells into Peripheral Vein, Percutaneous Approach (ICD-10-PCS; 2018-09-09)
DX: D50.9 Iron deficiency anemia, unspecified (principal); D69.3 Immune thrombocytopenic purpura; D72.829 Elevated white blood cell count, unspecified; R76.0 Raised antibody titer; K59.00 Constipation, unspecified; Z90.49 Acquired absence of other specified parts of digestive tract